=== PATIENT | male | born 1965 | race Asian ===

== ENCOUNTER 2018-08-10 05:42 | Inpatient (IN) | payer MEDICAID, OTHER ==
[~2018-08-10] VITALS: Ht 177.8 cm; Wt 97.5 kg
[2018-08-10] VITALS (8 sets, daily range): BP systolic 112–159; BP diastolic 66–77
[2018-08-10] MEDS ORDERED: VANCOMYCIN 1 G PREMIX 200 ML IV ONE (06:15)
[2018-08-10] MEDS ORDERED: PIPERACILLIN/TAZ 3.375G PREMIX 50 ML IV ONE (06:15)
[2018-08-10] MEDS ORDERED: SODIUM CHLORIDE 0.9% 1000ML BAG (SEPSIS BOLUS) IV ONE (06:15)
[2018-08-10] MEDS ORDERED: DEXTROSE 50% WATER 50ML SYRINGE IV SCH (06:30)
[2018-08-10 06:31] LABS: HEMATOCRIT. 33.7 % (42.0-52.0); HEMOGLOBIN. 10.9 g/dL (14.0-18.0); MEAN PLATELET VOLUME 7.5 fl (7.4-10.4); PLATELET 339 x1000/uL (130-400); RED BLOOD CELL COUNT 3.63 mill/uL (4.7-6.1); RED CELL DISTRIBUTION WIDTH 16.1 % (11.6-14.6)
[2018-08-10 06:32] LABS: CHLORIDE 100 mEq/L (98-107)
[2018-08-10 07:05] LABS: PLATELET ESTIMATE NORMAL
[2018-08-10] MEDS ORDERED: IPRATROPIUM/ALBUTEROL 0.5-3(2.5)MG/3ML NEB INH PRN (09:00)
[2018-08-10] MEDS ORDERED: PIPERACILLIN/TAZ 3.375G PREMIX 50 ML IV SCH (09:00)
[2018-08-10] MEDS ORDERED: ACETAMINOPHEN 325MG TABLET PO PRN (09:00)
[2018-08-10] MEDS ORDERED: HYDROCODONE/ACETAMINOPHEN 5/325MG TABLET PO PRN (09:00)
[2018-08-10] MEDS ORDERED: CLONIDINE 0.1MG TABLET PO PRN (09:00)
[2018-08-10] MEDS ORDERED: ONDANSETRON HCL 4MG/2ML INJ IV PRN (09:00)
[2018-08-10] MEDS ORDERED: MAGNESIUM/ALUMINUM HYDROXIDE/SIMETHICONE 30ML UDC PO PRN (09:00)
[2018-08-10] MEDS ORDERED: GUAIFENESIN 200MG/10ML SUGAR FREE UDC PO PRN (09:00)
[2018-08-10] MEDS ORDERED: DOCUSATE SODIUM 100MG CAPSULE PO PRN (09:00)
[2018-08-10] MEDS ORDERED: DIPHENHYDRAMINE 50MG/ML VIAL IV PRN (09:00)
[2018-08-10 09:14] LABS: PHOSPHORUS 5.8 mg/dL (2.5-4.9)
[2018-08-10 12:20] LABS: HEPATITIS B SURFACE ANTIGEN NEGATIVE
[2018-08-10 12:50] LABS: HEPATITIS A AB IGM NEGATIVE (NEGATIVE)
[2018-08-10] MEDS ORDERED: VANCOMYCIN 1 G PREMIX 200 ML IV SCH (15:00)
[2018-08-10] MEDS ORDERED: IPRATROPIUM/ALBUTEROL 0.5-3(2.5)MG/3ML NEB HHN PRN (15:45)
[2018-08-10 16:04] LABS: CREATINE KINASE MB FRACTION 1.7 ng/mL (0.5-3.6)
[2018-08-10] MEDS ORDERED: CALC667C MT (16:41)
[2018-08-10] MEDS ORDERED: SEVE800T8 MT (16:41)
[2018-08-10] MEDS ORDERED: AMLO10TA4 MT (16:41)
[2018-08-10] MEDS ORDERED: BENA1TAB18 MT (16:41)
[2018-08-10] MEDS ORDERED: NATE60TA MT (16:41)
[2018-08-10] MEDS ORDERED: ASPI-1158 PO (16:41)
[2018-08-10] MEDS ORDERED: SIMV20TA6 MT (16:41)
[2018-08-10] MEDS: NICOTINE 21MG PATCH TD SCH (16:53)
[2018-08-10] MEDS: PIPERACILLIN/TAZ 2.25G PREMIX 50 ML IV SCH (21:51)
[2018-08-10 22:59] LABS: CREATINE KINASE MB FRACTION 1.6 ng/mL (0.5-3.6)
[2018-08-11] VITALS (12 sets, daily range): BP systolic 112–142; BP diastolic 59–87
[2018-08-11 04:15] LABS: HIV SCREEN 4G Non Reactive (Non Reactive)
[2018-08-11 06:56] LABS: HEMATOCRIT. 32.1 % (42.0-52.0); HEMOGLOBIN. 10.3 g/dL (14.0-18.0); MEAN CORPUSCULAR HEMOGLOBIN 29.8 pg (28.0-32.0); MEAN CORPUSCULAR VOLUME 93.1 fL (80.0-94.0); PLATELET 311 x1000/uL (130-400); RED BLOOD CELL COUNT 3.45 mill/uL (4.7-6.1); RED CELL DISTRIBUTION WIDTH 16.5 % (11.6-14.6)
[2018-08-11] MEDS: PIPERACILLIN/TAZ 2.25G PREMIX 50 ML IV SCH ×2 (09:37→20:32)
[2018-08-11] MEDS: NICOTINE 21MG PATCH TD SCH (09:38)
[2018-08-11 17:09] LABS: PLATELET ESTIMATE NORMAL
[2018-08-11] MEDS: GUAIFENESIN 600MG ER TABLET PO SCH (20:30)
[2018-08-12] VITALS (12 sets, daily range): BP systolic 123–139; BP diastolic 62–82
[2018-08-12 06:59] LABS: HEMATOCRIT. 33.7 % (42.0-52.0); HEMOGLOBIN. 10.8 g/dL (14.0-18.0); MEAN CORPUSCULAR HEMOGLOBIN 29.6 pg (28.0-32.0); MEAN CORPUSCULAR VOLUME 92.9 fL (80.0-94.0); MEAN PLATELET VOLUME 7.6 fl (7.4-10.4); PLATELET 340 x1000/uL (130-400); RED BLOOD CELL COUNT 3.63 mill/uL (4.7-6.1)
[2018-08-12] MEDS: NATEGLINIDE 60MG TABLET PO SCH ×3 (08:00→17:41)
[2018-08-12] MEDS: CALCIUM ACETATE 667MG CAPSULE PO SCH ×4 (08:00→17:40)
[2018-08-12] MEDS: SEVELAMER CARBONATE 800 MG TABLET PO SCH ×3 (08:00→17:41)
[2018-08-12] MEDS: ASPIRIN 81MG EC TABLET PO SCH (08:48)
[2018-08-12] MEDS: PIPERACILLIN/TAZ 2.25G PREMIX 50 ML IV SCH ×2 (08:48→12:59)
[2018-08-12] MEDS: BENAZEPRIL 10MG TABLET PO SCH ×2 (08:48→13:00)
[2018-08-12] MEDS: AMLODIPINE 10MG TABLET PO SCH ×2 (08:49→13:01)
[2018-08-12] MEDS: GUAIFENESIN 600MG ER TABLET PO SCH ×2 (08:49→21:08)
[2018-08-12] MEDS: HYDROCHLOROTHIAZIDE 12.5MG CAPSULE PO SCH (08:49)
[2018-08-12] MEDS: NICOTINE 21MG PATCH TD SCH ×2 (08:50→13:02)
[2018-08-12 09:10] LABS: INR 1.1; PROTHROMBIN TIME 11.3 sec (9.6-11.0)
[2018-08-12] MEDS ORDERED: SODIUM BICARBONATE 4% (2.4MEQ) 5ML VIAL IV ONE (12:56)
[2018-08-12] MEDS ORDERED: LIDOCAINE HCL 1% 20ML VIAL (Pyxis) INJ ONE (12:57)
[2018-08-12 14:13] LABS: PLATELET ESTIMATE NORMAL
[2018-08-12] MEDS ORDERED: VANCOMYCIN 750 MG PREMIX 150 ML IV SCH (16:00)
[2018-08-12] MEDS: ATORVASTATIN CALCIUM 10MG TABLET PO SCH (21:08)
[2018-08-13] VITALS (12 sets, daily range): BP systolic 112–148; BP diastolic 54–83
[2018-08-13] MEDS: ASPIRIN 81MG EC TABLET PO SCH (06:29)
[2018-08-13] MEDS: BENAZEPRIL 10MG TABLET PO SCH (09:36)
[2018-08-13] MEDS: HYDROCHLOROTHIAZIDE 12.5MG CAPSULE PO SCH (09:37)
[2018-08-13] MEDS: NICOTINE 21MG PATCH TD SCH (09:37)
[2018-08-13] MEDS: NATEGLINIDE 60MG TABLET PO SCH ×3 (09:37→17:48)
[2018-08-13] MEDS: GUAIFENESIN 600MG ER TABLET PO SCH ×2 (09:37→21:16)
[2018-08-13] MEDS: CALCIUM ACETATE 667MG CAPSULE PO SCH ×3 (09:37→17:47)
[2018-08-13] MEDS: AMLODIPINE 10MG TABLET PO SCH (09:38)
[2018-08-13] MEDS: SEVELAMER CARBONATE 800 MG TABLET PO SCH ×3 (09:40→17:48)
[2018-08-13 09:53] LABS: HEMATOCRIT. 31.8 % (42.0-52.0); HEMOGLOBIN. 10.4 g/dL (14.0-18.0); MEAN CORPUSCULAR HEMOGLOBIN 30.1 pg (28.0-32.0); MEAN CORPUSCULAR VOLUME 92.6 fL (80.0-94.0); MEAN PLATELET VOLUME 7.4 fl (7.4-10.4); PLATELET 309 x1000/uL (130-400); RED BLOOD CELL COUNT 3.44 mill/uL (4.7-6.1); RED CELL DISTRIBUTION WIDTH 15.8 % (11.6-14.6)
[2018-08-13 10:48] LABS: PLATELET ESTIMATE NORMAL
[2018-08-13] MEDS: ATORVASTATIN CALCIUM 10MG TABLET PO SCH (21:16)
[2018-08-14] VITALS (12 sets, daily range): BP systolic 85–150; BP diastolic 46–98
[2018-08-14] MEDS: ASPIRIN 81MG EC TABLET PO SCH (06:00)
[2018-08-14 07:05] LABS: HEMATOCRIT. 34.9 % (42.0-52.0); MEAN CORPUSCULAR HEMOGLOBIN 29.3 pg (28.0-32.0); MEAN PLATELET VOLUME 7.7 fl (7.4-10.4); PLATELET 333 x1000/uL (130-400); RED BLOOD CELL COUNT 3.76 mill/uL (4.7-6.1); RED CELL DISTRIBUTION WIDTH 15.8 % (11.6-14.6)
[2018-08-14] MEDS: NATEGLINIDE 60MG TABLET PO SCH ×3 (08:00→18:21)
[2018-08-14] MEDS: CALCIUM ACETATE 667MG CAPSULE PO SCH ×3 (08:00→18:21)
[2018-08-14] MEDS: SEVELAMER CARBONATE 800 MG TABLET PO SCH ×3 (08:00→18:21)
[2018-08-14] MEDS ORDERED: DEXTROSE 50% WATER 50ML SYRINGE IV PRN (08:15)
[2018-08-14] MEDS ORDERED: [UNRECOGNIZED DRUG - OTHER] IV SCH ×2 (08:30)
[2018-08-14] MEDS ORDERED: DEXTROSE 5% IV SCH ×2 (08:30)
[2018-08-14] MEDS: DEXTROSE 50% WATER 50ML SYRINGE IV PRN (08:48)
[2018-08-14] MEDS: AMLODIPINE 10MG TABLET PO SCH (09:00)
[2018-08-14] MEDS: HYDROCHLOROTHIAZIDE 12.5MG CAPSULE PO SCH (09:00)
[2018-08-14] MEDS: NICOTINE 21MG PATCH TD SCH (09:00)
[2018-08-14] MEDS: GUAIFENESIN 600MG ER TABLET PO SCH ×2 (09:00→20:55)
[2018-08-14] MEDS: BENAZEPRIL 10MG TABLET PO SCH (09:00)
[2018-08-14] MEDS ORDERED: DEXT 5%/0.45% NACL 1000ML 1,000 ML IV SCH (09:15)
[2018-08-14] MEDS ORDERED: LIDOCAINE HCL 1% 20ML VIAL (Pyxis) INJ ONE (09:17)
[2018-08-14] MEDS ORDERED: IOHEXOL-300 50 ML BOTTLE IV ONE (09:51)
[2018-08-14 11:41] LABS: PLATELET ESTIMATE NORMAL
[2018-08-14] MEDS: ATORVASTATIN CALCIUM 10MG TABLET PO SCH (20:55)
[2018-08-15] VITALS (9 sets, daily range): BP systolic 123–151; BP diastolic 47–79
[2018-08-15] MEDS: ASPIRIN 81MG EC TABLET PO SCH (06:28)
[2018-08-15 06:36] LABS: HEMATOCRIT. 31.6 % (42.0-52.0); HEMOGLOBIN. 10.2 g/dL (14.0-18.0); MEAN CORPUSCULAR HEMOGLOBIN 29.5 pg (28.0-32.0); MEAN CORPUSCULAR VOLUME 91.7 fL (80.0-94.0); MEAN PLATELET VOLUME 7.8 fl (7.4-10.4); PLATELET 318 x1000/uL (130-400); RED BLOOD CELL COUNT 3.44 mill/uL (4.7-6.1)
[2018-08-15] MEDS: NICOTINE 21MG PATCH TD SCH (09:09)
[2018-08-15] MEDS: SEVELAMER CARBONATE 800 MG TABLET PO SCH ×3 (09:09→18:03)
[2018-08-15] MEDS: CALCIUM ACETATE 667MG CAPSULE PO SCH ×3 (09:09→18:03)
[2018-08-15] MEDS: GUAIFENESIN 600MG ER TABLET PO SCH ×2 (09:10→21:13)
[2018-08-15] MEDS: NATEGLINIDE 60MG TABLET PO SCH ×3 (09:10→18:03)
[2018-08-15] MEDS: AMLODIPINE 10MG TABLET PO SCH (09:10)
[2018-08-15] MEDS: BENAZEPRIL 10MG TABLET PO SCH (09:10)
[2018-08-15] MEDS: HYDROCHLOROTHIAZIDE 12.5MG CAPSULE PO SCH (09:10)
[2018-08-15 11:18] LABS: PLATELET ESTIMATE NORMAL
[2018-08-15] MEDS ORDERED: VANCOMYCIN 750 MG PREMIX 150 ML IV SCH (15:00)
[2018-08-15] MEDS: ATORVASTATIN CALCIUM 10MG TABLET PO SCH (21:13)
[2018-08-16] VITALS (20 sets, daily range): BP systolic 126–173; BP diastolic 51–90
[2018-08-16] MEDS: DEXTROSE 50% WATER 50ML SYRINGE IV PRN ×3 (02:15→08:26)
[2018-08-16] MEDS: ASPIRIN 81MG EC TABLET PO SCH (05:32)
[2018-08-16 06:44] LABS: HEMOGLOBIN. 10.3 g/dL (14.0-18.0); MEAN CORPUSCULAR HEMOGLOBIN 29.5 pg (28.0-32.0); MEAN CORPUSCULAR VOLUME 91.7 fL (80.0-94.0); MEAN PLATELET VOLUME 7.6 fl (7.4-10.4); PLATELET 333 x1000/uL (130-400); RED BLOOD CELL COUNT 3.49 mill/uL (4.7-6.1)
[2018-08-16] MEDS ORDERED: LIDOCAINE HCL/EPINEPHRINE 1%-EPI 1:100,000 20 ML VIAL ONE (07:21)
[2018-08-16] MEDS ORDERED: SODIUM BICARBONATE 4% (2.4MEQ) 5ML VIAL IV ONE (07:22)
[2018-08-16] MEDS ORDERED: LIDOCAINE HCL 1% 20ML VIAL (Pyxis) INJ ONE (07:23)
[2018-08-16] MEDS: NATEGLINIDE 60MG TABLET PO SCH ×2 (08:00→13:00)
[2018-08-16] MEDS: SEVELAMER CARBONATE 800 MG TABLET PO SCH ×2 (08:00→14:37)
[2018-08-16] MEDS: CALCIUM ACETATE 667MG CAPSULE PO SCH ×2 (08:00→14:37)
[2018-08-16] MEDS: NICOTINE 21MG PATCH TD SCH (08:20)
[2018-08-16] MEDS ORDERED: FENTANYL CITRATE/PF 50MCG/ML 2ML VIAL ONE (09:20)
[2018-08-16] MEDS ORDERED: FENTANYL CITRATE/PF 50MCG/ML 2ML VIAL IV ONE (09:30)
[2018-08-16] MEDS ORDERED: IOHEXOL-300 50 ML BOTTLE IV ONE (09:37)
[2018-08-16] MEDS: BENAZEPRIL 10MG TABLET PO SCH (10:44)
[2018-08-16] MEDS: HYDROCHLOROTHIAZIDE 12.5MG CAPSULE PO SCH (10:45)
[2018-08-16] MEDS: AMLODIPINE 10MG TABLET PO SCH (10:45)
[2018-08-16] MEDS: GUAIFENESIN 600MG ER TABLET PO SCH (10:45)
[2018-08-16] MEDS ORDERED: HEPARIN SODIUM 1,000 UNIT/1ML VIAL IV NR (12:15)
[2018-08-16 14:30] LABS: PLATELET ESTIMATE NORMAL
== END 2018-08-16 15:45 | disposition home or self-care (01) | DRG 721 ==
LOC: ER 05:42 → 5EST 08:06 → EDBEDREQ 08:10 → EDBEDREQTM 08:10 → ENRESERV 11:00 → CANRESERV 11:00 → EDBEDREQSVC 11:15 → ENRESERV 11:20 → 5EST 12:30
PROVIDERS: ADMIT Internal Medicine; ATTEND Internal Medicine
PROC: 5A1D70Z Performance of Urinary Filtration, Intermittent, Less than 6 Hours Per Day (ICD-10-PCS; 2018-08-10)
PROC: 0JPT0XZ Removal of Tunneled Vascular Access Device from Trunk Subcutaneous Tissue and Fascia, Open Approach (ICD-10-PCS; principal; 2018-08-12)
PROC: 05PYX3Z Removal of Infusion Device from Upper Vein, External Approach (ICD-10-PCS; 2018-08-12)
PROC: B54BZZA Ultrasonography of Right Lower Extremity Veins, Guidance (ICD-10-PCS; 2018-08-14)
PROC: 06HY33Z Insertion of Infusion Device into Lower Vein, Percutaneous Approach (ICD-10-PCS; 2018-08-14)
PROC: 5A1D70Z Performance of Urinary Filtration, Intermittent, Less than 6 Hours Per Day (ICD-10-PCS; 2018-08-14)
PROC: 06PYX3Z Removal of Infusion Device from Lower Vein, External Approach (ICD-10-PCS; 2018-08-16)
PROC: 0JH63XZ Insertion of Tunneled Vascular Access Device into Chest Subcutaneous Tissue and Fascia, Percutaneous Approach (ICD-10-PCS; 2018-08-16)
PROC: 02HV33Z Insertion of Infusion Device into Superior Vena Cava, Percutaneous Approach (ICD-10-PCS; 2018-08-16)
PROC: B5181ZA Fluoroscopy of Superior Vena Cava using Low Osmolar Contrast, Guidance (ICD-10-PCS; 2018-08-16)
PROC: B548ZZA Ultrasonography of Superior Vena Cava, Guidance (ICD-10-PCS; 2018-08-16)
PROC: 5A1D70Z Performance of Urinary Filtration, Intermittent, Less than 6 Hours Per Day (ICD-10-PCS; 2018-08-16)
DX: T80.211A Bloodstream infection due to central venous catheter, initial encounter (principal); A41.2 Sepsis due to unspecified staphylococcus; I33.0 Acute and subacute infective endocarditis; J96.00 Acute respiratory failure, unspecified whether with hypoxia or hypercapnia; G93.40 Encephalopathy, unspecified; I13.2 Hypertensive heart and chronic kidney disease with heart failure and with stage 5 chronic kidney disease, or end stage renal disease; N18.6 End stage renal disease; R65.20 Severe sepsis without septic shock; E87.2 Acidosis; E87.1 Hypo-osmolality and hyponatremia; D63.8 Anemia in other chronic diseases classified elsewhere; E78.5 Hyperlipidemia, unspecified; E83.39 Other disorders of phosphorus metabolism; E11.22 Type 2 diabetes mellitus with diabetic chronic kidney disease; I44.0 Atrioventricular block, first degree; I50.9 Heart failure, unspecified; D63.1 Anemia in chronic kidney disease; E66.9 Obesity, unspecified; E87.5 Hyperkalemia; F17.210 Nicotine dependence, cigarettes, uncomplicated; I08.0 Rheumatic disorders of both mitral and aortic valves; I25.10 Atherosclerotic heart disease of native coronary artery without angina pectoris; Y84.8 Other medical procedures as the cause of abnormal reaction of the patient, or of later complication, without mention of misadventure at the time of the procedure; Z79.899 Other long term (current) drug therapy; Z82.49 Family history of ischemic heart disease and other diseases of the circulatory system; Z83.3 Family history of diabetes mellitus; Z86.79 Personal history of other diseases of the circulatory system; Z95.2 Presence of prosthetic heart valve; Z99.2 Dependence on renal dialysis
CPT/HCPCS: 36415; 36558; 36569; 36589; 71045; 77001; 80048; 80061; 80202; 82550; 82553; 82962; 83036; 83605; 83735; 83880; 84100; 84145; 84443; 84484; 86705; 86709; 86803; 87070; 87077; 87186; 87340; 87389; 87804; 93005; 93306; 93970; 96365; 97161; 97165; 99152; 99153; 99291; C1725; C1750; C1752; C1769; C1887; J1642; J1644; J2543; J3010; J3370; J3490; J7030; J7050; Q9967; G0500

== ENCOUNTER 2019-11-24 05:21 | Inpatient (IN) | payer MEDICAID, OTHER ==
[~2019-11-24] VITALS: Ht 177.8 cm; Wt 92.2 kg
[2019-11-24] VITALS (7 sets, daily range): BP systolic 97–131; BP diastolic 51–115
[~2019-11-24 05:21] MED LIST: AMLO10TA4 MT; ASPI-1158 PO; BENA1TAB18 MT; CALC667C MT; SEVE800T8 MT; SIMV-43 MT
[2019-11-24] MEDS ORDERED: ADENOSINE 3 MG/ML 2ML VIAL IV ONE (05:45)
[2019-11-24] MEDS ORDERED: SODIUM CHLORIDE 0.9% 500 ML IV ONE (05:45)
[2019-11-24] MEDS ORDERED: ASPIRIN 325MG EC TABLET PO ONE (06:00)
[2019-11-24] MEDS ORDERED: ACETAMINOPHEN 325MG TABLET PO STA (06:05)
[2019-11-24 06:13] LABS: HEMATOCRIT. 42.9 % (42.0-52.0); HEMOGLOBIN. 14.1 g/dL (14.0-18.0); MEAN CORPUSCULAR HEMOGLOBIN 31.5 pg (28.0-32.0); MEAN CORPUSCULAR VOLUME 95.8 fL (80.0-94.0); MEAN PLATELET VOLUME 8.1 fl (7.4-10.4); PLATELET 67 x1000/uL (130-400); RED BLOOD CELL COUNT 4.48 mill/uL (4.7-6.1); RED CELL DISTRIBUTION WIDTH 16.8 % (11.6-14.6)
[2019-11-24] MEDS ORDERED: VANCOMYCIN 1 G PREMIX 200 ML IV ONE (06:15)
[2019-11-24] MEDS ORDERED: PIPERACILLIN/TAZ 3.375G PREMIX 50 ML IV ONE (06:15)
[2019-11-24 06:20] LABS: CHLORIDE 97 mEq/L (98-107)
[2019-11-24 06:49] LABS: INR 2.3
[2019-11-24 07:10] LABS: PLATELET ESTIMATE DECREASED
[2019-11-24] MEDS ORDERED: IPRATROPIUM/ALBUTEROL 0.5-3(2.5)MG/3ML NEB HHN PRN ×2 (11:30→12:15)
[2019-11-24 11:50] LABS: BG BASE EXCESS -9.7 mmol/L (-2.0-2.0); BG CARBOXYHEMOGLOBIN 1.7 % (0.5-1.5); BG FRACTION INSPIRED OXYGEN 32; BG HCO3 ACT 14.2 mmol/L (22.0-26.0); BG METHEMOGLOBIN 0.3 % (0.0-1.5); BG PCO2 26.9 mmHg (35.0-45.0); BG PH 7.341 (7.350-7.450); BG PO2 141.8 mmHg (75.0-100.0); BG SAMPLE SITE RIGHT RADIAL; BG TOTAL HEMOGLOBIN 15.1 g/dL (12.0-18.0); BG VENT MODE NASAL CANNULA
[2019-11-24] MEDS ORDERED: SIMV-46 MT (11:55)
[2019-11-24] MEDS ORDERED: WARF1TAB85 MT (11:55)
[2019-11-24] MEDS ORDERED: CLONIDINE 0.1MG TABLET PO PRN (12:15)
[2019-11-24] MEDS ORDERED: ONDANSETRON HCL 4MG/2ML INJ IV PRN (12:15)
[2019-11-24] MEDS ORDERED: GUAIFENESIN 200MG/10ML SUGAR FREE UDC PO PRN (12:15)
[2019-11-24] MEDS ORDERED: DOCUSATE SODIUM 100MG CAPSULE PO PRN (12:15)
[2019-11-24] MEDS ORDERED: HYDROCODONE/ACETAMINOPHEN 5/325MG TABLET PO PRN (12:15)
[2019-11-24] MEDS ORDERED: ACETAMINOPHEN 325MG TABLET PO PRN ×2 (12:15)
[2019-11-24] MEDS ORDERED: VANCOMYCIN 1 G PREMIX 200 ML IV SCH (13:00)
[2019-11-24] MEDS ORDERED: DEXTROSE 50% WATER 50ML SYRINGE IV PRN (13:15)
[2019-11-24] MEDS ORDERED: PIPERACILLIN/TAZOBACTAM 2.25 G in DEXTROSE 5% WATER 50 ML IV SCH (14:00)
[2019-11-24] MEDS ORDERED: PIPERACILLIN/TAZOBACTAM 3.375 G/VIAL IV SCH (14:00)
[2019-11-24] MEDS ORDERED: PHYTONADIONE 10MG/ML AMP SUBCUT SCH (14:30)
[2019-11-24 16:15] LABS: HEMATOCRIT 41.5 % (42.0-52.0); HEMOGLOBIN 13.5 g/dL (14.0-18.0); MEAN CORPUSCULAR HEMOGLOBIN 31.8 pg (28.0-32.0); MEAN CORPUSCULAR VOLUME 97.6 fL (80.0-94.0); RED BLOOD CELL COUNT 4.25 mill/uL (4.7-6.1); RED CELL DISTRIBUTION WIDTH 16.6 % (11.6-14.6)
[2019-11-24 16:21] LABS: PLATELET 41 x1000/uL (130-400)
[2019-11-24] MEDS: BLOOD SUGAR DIAGNOSTIC STRIP TEST SCH ×2 (17:56→20:51)
[2019-11-24] MEDS: INSULIN LISPRO 100 UNITS/ML SUBCUT SCH ×2 (17:56→21:00)
[2019-11-24] MEDS: LORAZEPAM 0.5MG TABLET PO PRN (18:38)
[2019-11-24] MEDS: SUCRALFATE 1 G/10 ML UDC PO SCH (20:51)
[2019-11-24] MEDS: PANTOPRAZOLE SODIUM 40 MG/VIAL IV SCH (20:51)
[2019-11-25] VITALS (12 sets, daily range): BP systolic 94–124; BP diastolic 44–79
[2019-11-25] MEDS: BLOOD SUGAR DIAGNOSTIC STRIP TEST SCH ×4 (06:37→21:53)
[2019-11-25 06:57] LABS: HEMATOCRIT. 46.9 % (42.0-52.0); HEMOGLOBIN. 15.4 g/dL (14.0-18.0); MEAN CORPUSCULAR HEMOGLOBIN 31.8 pg (28.0-32.0); MEAN CORPUSCULAR VOLUME 96.9 fL (80.0-94.0); MEAN PLATELET VOLUME 11.2 fl (7.4-10.4); RED BLOOD CELL COUNT 4.84 mill/uL (4.7-6.1); RED CELL DISTRIBUTION WIDTH 16.9 % (11.6-14.6)
[2019-11-25 07:01] LABS: INR 2.1; PROTHROMBIN TIME 21.4 sec (9.6-11.0)
[2019-11-25] MEDS: SUCRALFATE 1 G/10 ML UDC PO SCH ×4 (07:30→21:53)
[2019-11-25] MEDS: INSULIN LISPRO 100 UNITS/ML SUBCUT SCH ×4 (07:35→21:00)
[2019-11-25] MEDS: PANTOPRAZOLE SODIUM 40 MG/VIAL IV SCH ×2 (08:41→21:53)
[2019-11-25] MEDS: PHYTONADIONE 10MG/ML AMP SUBCUT SCH (08:41)
[2019-11-25 09:23] LABS: PLATELET ESTIMATE MARKEDLY DECREASED
[2019-11-25 09:24] LABS: PLATELET 34 x1000/uL (130-400)
[2019-11-25] MEDS ORDERED: VANCOMYCIN 1 G PREMIX 200 ML IV SCH (21:00)
[2019-11-25] MEDS: LORAZEPAM 0.5MG TABLET PO PRN (21:27)
[2019-11-26] VITALS (23 sets, daily range): BP systolic 95–154; BP diastolic 49–87
[2019-11-26] MEDS: SUCRALFATE 1 G/10 ML UDC PO SCH ×4 (07:30→20:41)
[2019-11-26] MEDS: INSULIN LISPRO 100 UNITS/ML SUBCUT SCH ×4 (08:00→20:47)
[2019-11-26] MEDS: BLOOD SUGAR DIAGNOSTIC STRIP TEST SCH ×4 (08:02→20:41)
[2019-11-26] MEDS: PANTOPRAZOLE SODIUM 40 MG/VIAL IV SCH ×2 (08:07→20:41)
[2019-11-26] MEDS: PHYTONADIONE 10MG/ML AMP SUBCUT SCH (08:08)
[2019-11-26 10:15] LABS: HEMATOCRIT. 35.5 % (42.0-52.0); HEMOGLOBIN. 11.8 g/dL (14.0-18.0); MEAN CORPUSCULAR VOLUME 93.6 fL (80.0-94.0); MEAN PLATELET VOLUME 9.6 fl (7.4-10.4); RED BLOOD CELL COUNT 3.79 mill/uL (4.7-6.1); RED CELL DISTRIBUTION WIDTH 16.4 % (11.6-14.6)
[2019-11-26 10:18] LABS: INR 1.2; PROTHROMBIN TIME 12.4 sec (9.6-11.0)
[2019-11-26 10:19] LABS: PLATELET 31 x1000/uL (130-400)
[2019-11-26] MEDS ORDERED: ACETAMINOPHEN 650MG SUPP PR PRN (10:30)
[2019-11-26 11:23] LABS: BG BASE EXCESS -1.5 mmol/L (-2.0-2.0); BG CARBOXYHEMOGLOBIN 1.5 % (0.5-1.5); BG DEOXYHEMOGLOBIN 3.9 % (0.0-5.0); BG FRACTION INSPIRED OXYGEN 21; BG HCO3 ACT 21.1 mmol/L (22.0-26.0); BG METHEMOGLOBIN 0.3 % (0.0-1.5); BG OXYHEMOGLOBIN 94.3 % (94.0-97.0); BG PCO2 29.3 mmHg (35.0-45.0); BG PH 7.475 (7.350-7.450); BG PO2 81.3 mmHg (75.0-100.0); BG SAMPLE SITE RIGHT RADIAL; BG TOTAL HEMOGLOBIN 12.6 g/dL (12.0-18.0); BG VENT MODE ROOM AIR
[2019-11-26 13:42] LABS: PLATELET ESTIMATE MARKEDLY DECREASED
[2019-11-26] MEDS ORDERED: LORAZEPAM 2MG/ML CPJ IV NR (14:45)
[2019-11-26] MEDS ORDERED: IOHEXOL-350 100 ML BOTTLE ONE (15:23)
[2019-11-27] VITALS: BP 134/62
[2019-11-27] MEDS ORDERED: LORAZEPAM 2MG/ML CPJ IV PRN (01:15)
[2019-11-27] MEDS ORDERED: LORAZEPAM 0.5MG TABLET PO PRN (01:15)
[2019-11-27 02:00] VITALS: BP 139/54
[2019-11-27 04:00] VITALS: BP 168/81
[2019-11-27 06:00] VITALS: BP 123/66
[2019-11-27] MEDS: SUCRALFATE 1 G/10 ML UDC PO SCH (06:42)
[2019-11-27] MEDS: BLOOD SUGAR DIAGNOSTIC STRIP TEST SCH (07:30)
[2019-11-27 07:32] LABS: CHLORIDE 88 mEq/L (98-107)
[2019-11-27 07:37] LABS: INR 1.1
[2019-11-27 07:40] LABS: HEMATOCRIT. 36.7 % (42.0-52.0); HEMOGLOBIN. 12.1 g/dL (14.0-18.0); MEAN CORPUSCULAR HEMOGLOBIN 31.2 pg (28.0-32.0); MEAN CORPUSCULAR VOLUME 94.4 fL (80.0-94.0); MEAN PLATELET VOLUME 10.7 fl (7.4-10.4); RED BLOOD CELL COUNT 3.89 mill/uL (4.7-6.1); RED CELL DISTRIBUTION WIDTH 17.2 % (11.6-14.6)
[2019-11-27 08:00] VITALS: BP 144/59
[2019-11-27] MEDS: INSULIN LISPRO 100 UNITS/ML SUBCUT SCH (08:00)
[2019-11-27 08:34] LABS: PLATELET 16 x1000/uL (130-400)
[2019-11-27] MEDS ORDERED: HYDRALAZINE 20MG/ML VIAL IV PRN (08:45)
[2019-11-27] MEDS ORDERED: MORPHINE SULFATE 2 MG/ML CPJ (NOT FOR IM USE) IV PRN (08:45)
[2019-11-27 09:12] LABS: BG BASE EXCESS -5.3 mmol/L (-2.0-2.0); BG CARBOXYHEMOGLOBIN 1.6 % (0.5-1.5); BG DEOXYHEMOGLOBIN 1.8 % (0.0-5.0); BG FRACTION INSPIRED OXYGEN 32; BG HCO3 ACT 17.8 mmol/L (22.0-26.0); BG METHEMOGLOBIN 0.3 % (0.0-1.5); BG OXYGEN SATURATION 98.2 % (92.0-98.5); BG OXYHEMOGLOBIN 96.3 % (94.0-97.0); BG PH 7.422 (7.350-7.450); BG PO2 115.9 mmHg (75.0-100.0); BG SAMPLE SITE RIGHT BRACHIAL; BG TOTAL HEMOGLOBIN 12.5 g/dL (12.0-18.0); BG VENT MODE NASAL CANNULA
[2019-11-27 09:30] VITALS: BP 120/79
[2019-11-27] MEDS ORDERED: DEXT 5%/0.9% NACL 1,000 ML IV SCH (09:30)
[2019-11-27] MEDS ORDERED: NICARDIPINE 100 MG in SODIUM CHLORIDE 0.9% 60 ML IV PRN (09:30)
[2019-11-27] MEDS ORDERED: CALCIUM CHLORIDE 1GM/10ML SYR IV ONE ×2 (09:58→11:28)
[2019-11-27] MEDS ORDERED: LEVETIRACETAM 1,000 MG in SODIUM CHLORIDE 0.9% 100 ML IV NR (10:00)
[2019-11-27] MEDS ORDERED: PHENYLEPHRINE 40 MG in DEXT 5% WATER 246 ML IV PRN (11:00)
[2019-11-27] MEDS ORDERED: NOREPINEPHRINE 32 MG in DEXT 5% WATER 468 ML IV PRN (11:00)
[2019-11-27 11:21] LABS: BG BASE EXCESS -4.2 mmol/L (-2.0-2.0); BG CARBOXYHEMOGLOBIN 0.8 % (0.5-1.5); BG DEOXYHEMOGLOBIN 0.8 % (0.0-5.0); BG FRACTION INSPIRED OXYGEN 100; BG HCO3 ACT 19.8 mmol/L (22.0-26.0); BG METHEMOGLOBIN 0.3 % (0.0-1.5); BG OXYGEN SATURATION 99.2 % (92.0-98.5); BG OXYHEMOGLOBIN 98.1 % (94.0-97.0); BG PCO2 32.7 mmHg (35.0-45.0); BG PH 7.399 (7.350-7.450); BG PO2 200.5 mmHg (75.0-100.0); BG SAMPLE SITE LEFT FEMORAL; BG TIDAL VOLUME(mL) 550 mL; BG TOTAL HEMOGLOBIN 11.7 g/dL (12.0-18.0); BG VENT MODE VENT - A/C; BG VENT RATE 18 set
[2019-11-27 13:20] LABS: PLATELET ESTIMATE MARKEDLY DECREASED
[2019-11-27] MEDS ORDERED: LEVETIRACETAM 500MG PREMIX 100 ML IV SCH (21:00)
== END 2019-11-27 12:36 | disposition expired | DRG 720 ==
LOC: ER 05:21 → 5EST 08:20 → EDBEDREQTM 08:26 → EDBEDREQ 08:26 → ENRESERV 09:03 → ER 09:57
PROVIDERS: ADMIT Internal Medicine; ATTEND Internal Medicine
PROC: 5A1D70Z Performance of Urinary Filtration, Intermittent, Less than 6 Hours Per Day (ICD-10-PCS; 2019-11-24)
PROC: 5A1D70Z Performance of Urinary Filtration, Intermittent, Less than 6 Hours Per Day (ICD-10-PCS; 2019-11-25)
PROC: 5A2204Z Restoration of Cardiac Rhythm, Single (ICD-10-PCS; principal; 2019-11-27)
PROC: 5A12012 Performance of Cardiac Output, Single, Manual (ICD-10-PCS; 2019-11-27)
PROC: 5A1D70Z Performance of Urinary Filtration, Intermittent, Less than 6 Hours Per Day (ICD-10-PCS; 2019-11-27)
PROC: 5A1935Z Respiratory Ventilation, Less than 24 Consecutive Hours (ICD-10-PCS; 2019-11-27)
PROC: 0BH17EZ Insertion of Endotracheal Airway into Trachea, Via Natural or Artificial Opening (ICD-10-PCS; 2019-11-27)
DX: A41.02 Sepsis due to Methicillin resistant Staphylococcus aureus (principal); J96.00 Acute respiratory failure, unspecified whether with hypoxia or hypercapnia; N18.6 End stage renal disease; I47.1 Supraventricular tachycardia; I48.92 Unspecified atrial flutter; R65.20 Severe sepsis without septic shock; E78.5 Hyperlipidemia, unspecified; E87.5 Hyperkalemia; E87.2 Acidosis; E87.1 Hypo-osmolality and hyponatremia; E11.22 Type 2 diabetes mellitus with diabetic chronic kidney disease; D69.6 Thrombocytopenia, unspecified; D68.9 Coagulation defect, unspecified; Z66 Do not resuscitate; D64.9 Anemia, unspecified; I35.0 Nonrheumatic aortic (valve) stenosis; D72.810 Lymphocytopenia; R74.0 Nonspecific elevation of levels of transaminase and lactic acid dehydrogenase [LDH]; I34.0 Nonrheumatic mitral (valve) insufficiency; I38 Endocarditis, valve unspecified; K92.0 Hematemesis; I76 Septic arterial embolism; I48.91 Unspecified atrial fibrillation; D61.818 Other pancytopenia; I46.9 Cardiac arrest, cause unspecified; F17.210 Nicotine dependence, cigarettes, uncomplicated; I60.9 Nontraumatic subarachnoid hemorrhage, unspecified; J98.11 Atelectasis; I13.2 Hypertensive heart and chronic kidney disease with heart failure and with stage 5 chronic kidney disease, or end stage renal disease; I50.9 Heart failure, unspecified; W18.2XXA Fall in (into) shower or empty bathtub, initial encounter; Z79.01 Long term (current) use of anticoagulants; Z79.899 Other long term (current) drug therapy; Z79.82 Long term (current) use of aspirin; Z99.2 Dependence on renal dialysis; Z95.2 Presence of prosthetic heart valve; Z78.1 Physical restraint status; Y93.E1 Activity, personal bathing and showering; Y92.89 Other specified places as the place of occurrence of the external cause; Y99.8 Other external cause status; Z79.84 Long term (current) use of oral hypoglycemic drugs; Z85.46 Personal history of malignant neoplasm of prostate
CPT/HCPCS: 36415; 36600; 70496; 70551; 71045; 71260; 74177; 80048; 80053; 80061; 80202; 82140; 82375; 82805; 82962; 83036; 83605; 83735; 83880; 84145; 84484; 85025; 85027; 85044; 85379; 86850; 86900; 86927; 87077; 93005; 93306; 93970; 99291; C9113; J1815; J1953; J2060; J2405; J2543; J3370; J3430; J3490; J7040; J7042; J7050; J7060; P9017; P9034; Q9967